=== PATIENT | female | born 1955 | race Caucasian/White ===

== ENCOUNTER 2018-01-30 19:42 | Emergency (ER) | payer OTHER ==
[~2018-01-30] VITALS: Ht 175.3 cm; Wt 108.0 kg
[2018-01-30 19:55] VITALS: BP 148/74; Ht 175.3 cm; Wt 108.0 kg
== END 2018-01-30 21:46 | disposition home or self-care (01) ==
LOC: ED 19:42
DX: M79.604 Pain in right leg (principal); M79.1 Myalgia; I10 Essential (primary) hypertension

== ENCOUNTER 2019-08-03 18:33 | Emergency (ER) | payer OTHER ==
[~2019-08-03] VITALS: Ht 175.3 cm; Wt 109.3 kg
[2019-08-03 18:44] VITALS: BP 158/73; Ht 175.3 cm; Wt 109.3 kg
== END 2019-08-03 19:42 | disposition home or self-care (01) ==
LOC: ED 18:33
DX: S76.912A Strain of unspecified muscles, fascia and tendons at thigh level, left thigh, initial encounter (principal); X58.XXXA Exposure to other specified factors, initial encounter; Y93.89 Activity, other specified; Y92.89 Other specified places as the place of occurrence of the external cause; Y99.8 Other external cause status